=== PATIENT | female | born 1990 ===

== ENCOUNTER 2023-03-23 15:47 | Outpatient (CLI) | payer OTHER | END 2023-03-23 16:38 | disposition home or self-care (01) | LOC: PRENATAL 15:47 | PROVIDERS: ATTEND Obstetrics & Gynecology Maternal & Fetal Medicine | DX: O36.80X0 Pregnancy with inconclusive fetal viability, not applicable or unspecified (principal); Z36.82 Encounter for antenatal screening for nuchal translucency; O99.019 Anemia complicating pregnancy, unspecified trimester; Z3A.13 13 weeks gestation of pregnancy ==

== ENCOUNTER 2023-05-12 14:42 | Outpatient (CLI) | payer OTHER | END 2023-05-12 14:43 | disposition home or self-care (01) | LOC: PRENATAL 14:42 | PROVIDERS: ATTEND Obstetrics & Gynecology Maternal & Fetal Medicine | DX: O35.3XX0 Maternal care for (suspected) damage to fetus from viral disease in mother, not applicable or unspecified (principal); O44.00 Complete placenta previa NOS or without hemorrhage, unspecified trimester; Z3A.20 20 weeks gestation of pregnancy ==

== ENCOUNTER 2023-06-19 17:58 | Outpatient (CLI) | payer OTHER ==
[2023-06-19] MEDS ORDERED: PRENATAL TABLE1 EAC1 PO (18:33)
[2023-06-19] MEDS ORDERED: IRON236 MG PO (18:33)
[2023-06-19] MEDS ORDERED: MACROBID 100 M100 MG (18:34)
[2023-06-19 18:58] LABS: HEMATOCRIT 30.9 % (36.0-45.00); HEMOGLOBIN 10.2 g/dL (12.0-15.00); MEAN CELL VOLUME 70.6 fL (80.00-100.00); MEAN CORPUSCULAR HEMOGLOBIN 23.3 pg (27.00-32.0); PLATELET COUNT 254 K/uL (150-450); RED BLOOD COUNT 4.37 M/uL (4.00-6.00); RED CELL DISTRIBUTION WIDTH 17.3 % (11.5-14.5)
[2023-06-19 19:17] LABS: INR 0.98; PARTIAL THROMBOPLASTIN TIME 25.9 SECONDS (22.0-34.0); PROTHROMBIN TIME 10.3 SECONDS (9.0-11.5)
[2023-06-19 19:18] LABS: ALBUMIN 2.7 gm/dL (3.4-5.0); BILIRUBIN TOTAL 0.38 mg/dL (0.3-1.2); CALCIUM 8.7 mg/dL (8.5-10.1); CREATININE SERUM 0.49 mg/dL (0.55-1.02); GFR 148.29; GLOBULINA 4.1 G/DL (2.4-3.5); POTASSIUM 3.5 mEq/L (3.5-5.1); TOTAL PROTEIN 6.8 gm/dL (6.4-8.2)
[2023-06-19 21:52] LABS: URINE PROT QUANT 24HR 5.9 MG/DL
== END 2023-06-20 00:15 | disposition home or self-care (01) ==
LOC: OBS/DEL 17:58
PROVIDERS: ATTEND Obstetrics & Gynecology
DX: O16.2 Unspecified maternal hypertension, second trimester (principal); Z3A.25 25 weeks gestation of pregnancy

== ENCOUNTER → 2023-08-03 15:16 | Outpatient (CLI) | payer OTHER ==
[~2023-08-03 15:16] MED LIST: IRON236 MG PO; MACROBID 100 M100 MG; PRENATAL TABLE1 EAC1 PO
== END | disposition home or self-care (01) ==
LOC: PRENATAL 15:16
PROVIDERS: ATTEND Obstetrics & Gynecology Maternal & Fetal Medicine
DX: O26.849 Uterine size-date discrepancy, unspecified trimester (principal); O36.8199 Decreased fetal movements, unspecified trimester, other fetus; O13.9 Gestational [pregnancy-induced] hypertension without significant proteinuria, unspecified trimester; Z3A.32 32 weeks gestation of pregnancy

== ENCOUNTER 2023-08-13 11:24 | Inpatient (IN) | payer OTHER ==
[~2023-08-13] VITALS: Ht 154.9 cm; Wt 1.8 kg
[~2023-08-13 11:24] MED LIST changes: -MACROBID 100 M100 MG; +MACROBID 100 M100 MG PO
[2023-08-13] MEDS ORDERED: BETAMETHASONE ACETATE,SOD PHOS 30 MG/5 ML ML ONE (12:02)
[2023-08-13] MEDS ORDERED: CHILDREN'S ASPI81 MG PO (12:11)
[2023-08-13] MEDS ORDERED: LABETALOL HCL100 MG PO (12:12)
[2023-08-13] MEDS ORDERED: BETAMETHASONE ACETATE,SOD PHOS 30 MG/5 ML ML IM STA (12:16)
[2023-08-13] MEDS ORDERED: SOD FERRIC GLUC COMPLX/SUCROSE 62.5 MG/5 ML AMPUL IV SCH (12:25)
[2023-08-13] MEDS ORDERED: RINGERS SOLUTION,LACTATED 1,000 ML IV SCH (12:30)
[2023-08-13 12:40] LABS: INR < 0.93; PARTIAL THROMBOPLASTIN TIME 26.1 SECONDS (22.0-34.0); PROTHROMBIN TIME 9.8 SECONDS (9.0-11.5)
[2023-08-13 12:44] LABS: ALBUMIN 2.8 gm/dL (3.4-5.0); BILIRUBIN TOTAL 0.46 mg/dL (0.3-1.2); CALCIUM 8.8 mg/dL (8.5-10.1); CREATININE SERUM 0.59 mg/dL (0.55-1.02); GFR 118.88; POTASSIUM 4.38 mEq/L (3.5-5.1); TOTAL PROTEIN 6.8 gm/dL (6.4-8.2); URIC ACID 4.6 mg/dL (2.5-7.5)
[2023-08-13 13:02] LABS: HEMATOCRIT 32.1 % (36.0-45.00); HEMOGLOBIN 10.2 g/dL (12.0-15.00); MEAN CORPUSCULAR HEMOGLOBIN 22.3 pg (27.00-32.0); MEAN CORPUSCULAR HGB CONC 31.9 g/dl (32.0-36.0); PLATELET COUNT 272 K/uL (150-450); RED CELL DISTRIBUTION WIDTH 16.9 % (11.5-14.5)
[2023-08-13 13:03] LABS: MEAN CELL VOLUME 69.8 fL (80.00-100.00)
[2023-08-13] MEDS ORDERED: LABETALOL HCL 200 MG TABLET PO SCH (17:00)
[2023-08-14] MEDS ORDERED: LABETALOL HCL 200 MG TABLET PO SCH (08:00)
[2023-08-14] MEDS ORDERED: BETAMETHASONE ACETATE,SOD PHOS 30 MG/5 ML ML IM ONE (12:05)
[2023-08-14 12:11] LABS: HEMATOCRIT 29.5 % (36.0-45.00); HEMOGLOBIN 9.7 g/dL (12.0-15.00); MEAN CORPUSCULAR HEMOGLOBIN 22.8 pg (27.00-32.0); MEAN CORPUSCULAR HGB CONC 32.9 g/dl (32.0-36.0); PLATELET COUNT 259 K/uL (150-450); RED BLOOD COUNT 4.27 M/uL (4.00-6.00); RED CELL DISTRIBUTION WIDTH 16.7 % (11.5-14.5)
[2023-08-14] MEDS ORDERED: BETAMETHASONE ACETATE,SOD PHOS 30 MG/5 ML ML ONE (12:11)
[2023-08-14 12:12] LABS: MEAN CELL VOLUME 69.1 fL (80.00-100.00)
[2023-08-14 12:32] LABS: ALBUMIN 2.5 gm/dL (3.4-5.0); BILIRUBIN TOTAL 0.58 mg/dL (0.3-1.2); CALCIUM 8.7 mg/dL (8.5-10.1); CREATININE SERUM 0.54 mg/dL (0.55-1.02); GFR 131.68; GLOBULINA 3.7 G/DL (2.4-3.5); POTASSIUM 4.24 mEq/L (3.5-5.1); TOTAL PROTEIN 6.2 gm/dL (6.4-8.2)
[2023-08-14] MEDS ORDERED: NITROFURANTOIN MONOHYD/M-CRYST 100 MG CAPSULE PO SCH (17:00)
[2023-08-15] MEDS ORDERED: FAMOtidine 20 MG TABLET PO STA (19:36)
[2023-08-15] MEDS ORDERED: ACETAMINOPHEN 500 MG GEL..CAP PO STA (19:36)
[2023-08-16] MEDS ORDERED: LABETALOL HCL 100 MG/20 ML ML IV PUSH ONE (03:15)
[2023-08-16 05:31] LABS: HEMATOCRIT 29.7 % (36.0-45.00); HEMOGLOBIN 9.6 g/dL (12.0-15.00); MEAN CELL VOLUME 70.2 fL (80.00-100.00); MEAN CORPUSCULAR HEMOGLOBIN 22.7 pg (27.00-32.0); MEAN CORPUSCULAR HGB CONC 32.4 g/dl (32.0-36.0); PLATELET COUNT 280 K/uL (150-450); RED BLOOD COUNT 4.23 M/uL (4.00-6.00); RED CELL DISTRIBUTION WIDTH 17.3 % (11.5-14.5)
[2023-08-16 05:43] LABS: ALBUMIN 2.7 gm/dL (3.4-5.0); BILIRUBIN TOTAL 0.37 mg/dL (0.3-1.2); CALCIUM 8.9 mg/dL (8.5-10.1); CREATININE SERUM 0.67 mg/dL (0.55-1.02); GFR 102.66; GLOBULINA 3.7 G/DL (2.4-3.5); POTASSIUM 4.4 mEq/L (3.5-5.1); TOTAL PROTEIN 6.4 gm/dL (6.4-8.2)
[2023-08-16] MEDS ORDERED: CYCLOBENZAPRINE HCL 5 MG TABLET PO ONE (05:45)
[2023-08-16] MEDS ORDERED: MAGNESIUM SULFATE IN WATER 4 GM/100 ML PIGGYBACK IV ONE (07:34)
[2023-08-16] MEDS ORDERED: hydrALAZINE HCL 20 MG VIAL ONE (07:48)
[2023-08-16] MEDS ORDERED: MAGNESIUM SULFATE IN WATER 0.04 GM/ML IV.SOLN IV ONE ×2 (08:11→19:04)
[2023-08-16] MEDS ORDERED: MAGNESIUM SULFATE IN WATER 500 ML IV SCH (09:00)
[2023-08-16] MEDS ORDERED: hydrALAZINE HCL 20 MG VIAL IV ONE (09:00)
[2023-08-16] MEDS ORDERED: MAGNESIUM SULFATE IN WATER 100 ML IV ONE (09:00)
[2023-08-16] MEDS ORDERED: OxyCODONE HCL/APAP UD (PERCOCET) PO ONE (09:15)
[2023-08-16 12:34] LABS: HEMATOCRIT 28.9 % (36.0-45.00); HEMOGLOBIN 9.3 g/dL (12.0-15.00); MEAN CELL VOLUME 70.6 fL (80.00-100.00); MEAN CORPUSCULAR HEMOGLOBIN 22.8 pg (27.00-32.0); MEAN CORPUSCULAR HGB CONC 32.3 g/dl (32.0-36.0); PLATELET COUNT 271 K/uL (150-450); RED CELL DISTRIBUTION WIDTH 17.2 % (11.5-14.5)
[2023-08-16] MEDS ORDERED: ERYTHROMYCIN BASE 3.5 GM OINT...G. OP ONE (12:42)
[2023-08-16] MEDS ORDERED: OXYTOCIN 10 UNITS/ML VIAL ONE (12:42)
[2023-08-16 12:49] LABS: INR < 0.93; PARTIAL THROMBOPLASTIN TIME 25.1 SECONDS (22.0-34.0); PROTHROMBIN TIME 9.6 SECONDS (9.0-11.5)
[2023-08-16 13:40] LABS: ALBUMIN 2.6 gm/dL (3.4-5.0); BILIRUBIN TOTAL 0.48 mg/dL (0.3-1.2); CALCIUM 7.9 mg/dL (8.5-10.1); CREATININE SERUM 0.55 mg/dL (0.55-1.02); GFR 128.92; GLOBULINA 3.6 G/DL (2.4-3.5); POTASSIUM 4.06 mEq/L (3.5-5.1); TOTAL PROTEIN 6.2 gm/dL (6.4-8.2)
[2023-08-16] MEDS ORDERED: CEFAZOLIN SODIUM 1,000 MG VIAL IV SCH (14:30)
[2023-08-16] MEDS ORDERED: RINGERS SOLUTION,LACTATED 1,000 ML IV SCH (15:30)
[2023-08-16] MEDS ORDERED: ERYTHROMYCIN BASE 1 GM TUBE OP ONE (16:00)
[2023-08-16] MEDS ORDERED: OXYTOCIN 10 UNITS/ML VIAL IV ONE (16:00)
[2023-08-16] MEDS ORDERED: MEPERIDINE HCL/PF 50 MG/ML VIAL IM PRN (18:30)
[2023-08-16] MEDS ORDERED: PROMETHAZINE HCL 50 MG/ML AMPUL IM PRN (18:30)
[2023-08-16] MEDS ORDERED: LABETALOL HCL 20MG/4ML SYRINGE IV ONE (19:30)
[2023-08-17] MEDS ORDERED: OxyCODONE HCL/APAP UD (PERCOCET) PO PRN (08:00)
[2023-08-17] MEDS ORDERED: SIMETHICONE 125 MG CAPSULE PO SCH (09:00)
[2023-08-17] MEDS ORDERED: PNV,CALCIUM 72/IRON/FOLIC ACID 1 TAB TABLET PO SCH (09:00)
[2023-08-17] MEDS ORDERED: DOCUSATE SODIUM 100MG CAP PO SCH (09:00)
[2023-08-17 09:40] LABS: HEMATOCRIT 26.4 % (36.0-45.00); HEMOGLOBIN 8.6 g/dL (12.0-15.00); MEAN CELL VOLUME 69.4 fL (80.00-100.00); MEAN CORPUSCULAR HEMOGLOBIN 22.5 pg (27.00-32.0); MEAN CORPUSCULAR HGB CONC 32.5 g/dl (32.0-36.0); PLATELET COUNT 216 K/uL (150-450); RED BLOOD COUNT 3.81 M/uL (4.00-6.00); RED CELL DISTRIBUTION WIDTH 17.3 % (11.5-14.5)
[2023-08-17 10:07] LABS: ALBUMIN 2.2 gm/dL (3.4-5.0); BILIRUBIN TOTAL 0.69 mg/dL (0.3-1.2); CALCIUM 6.9 mg/dL (8.5-10.1); CREATININE SERUM 0.5 mg/dL (0.55-1.02); GFR 143.9; GLOBULINA 3.2 G/DL (2.4-3.5); POTASSIUM 3.79 mEq/L (3.5-5.1); TOTAL PROTEIN 5.4 gm/dL (6.4-8.2)
[2023-08-17] MEDS ORDERED: IBUprofen 800 MG TABLET PO SCH (21:00)
[2023-08-17] MEDS ORDERED: IBUprofen 400 MG TABLET PO ONE (21:02)
[2023-08-18 08:41] LABS: HEMATOCRIT 27.1 % (36.0-45.00); MEAN CELL VOLUME 71.7 fL (80.00-100.00); MEAN CORPUSCULAR HEMOGLOBIN 23.6 pg (27.00-32.0); MEAN CORPUSCULAR HGB CONC 32.9 g/dl (32.0-36.0); PLATELET COUNT 234 K/uL (150-450); RED BLOOD COUNT 3.77 M/uL (4.00-6.00); RED CELL DISTRIBUTION WIDTH 17.8 % (11.5-14.5)
[2023-08-18 08:44] LABS: HEMOGLOBIN 8.9 g/dL (12.0-15.00)
[2023-08-18 09:06] LABS: ALBUMIN 2.4 gm/dL (3.4-5.0); BILIRUBIN TOTAL 0.57 mg/dL (0.3-1.2); CALCIUM 8.1 mg/dL (8.5-10.1); CREATININE SERUM 0.63 mg/dL (0.55-1.02); GFR 110.22; GLOBULINA 3.5 G/DL (2.4-3.5); POTASSIUM 3.93 mEq/L (3.5-5.1); TOTAL PROTEIN 5.9 gm/dL (6.4-8.2)
[2023-08-19] MEDS ORDERED: FERROUS SULFATE 325 MG TABLET.EC PO SCH (09:00)
[2023-08-20 10:10] LABS: HEMATOCRIT 26.7 % (36.0-45.00); HEMOGLOBIN 8.7 g/dL (12.0-15.00); MEAN CELL VOLUME 72.9 fL (80.00-100.00); MEAN CORPUSCULAR HEMOGLOBIN 23.7 pg (27.00-32.0); MEAN CORPUSCULAR HGB CONC 32.4 g/dl (32.0-36.0); PLATELET COUNT 213 K/uL (150-450); RED BLOOD COUNT 3.67 M/uL (4.00-6.00); RED CELL DISTRIBUTION WIDTH 18.2 % (11.5-14.5)
[2023-08-20 10:49] LABS: ALBUMIN 2.4 gm/dL (3.4-5.0); BILIRUBIN TOTAL 0.54 mg/dL (0.3-1.2); CALCIUM 8.6 mg/dL (8.5-10.1); CREATININE SERUM 0.52 mg/dL (0.55-1.02); GFR 137.54; GLOBULINA 3.4 G/DL (2.4-3.5); POTASSIUM 4.3 mEq/L (3.5-5.1); TOTAL PROTEIN 5.8 gm/dL (6.4-8.2)
[2023-08-20] MEDS ORDERED: LABETALOL HCL 200 MG TABLET PO SCH (17:00)
== END 2023-08-20 17:36 | disposition home or self-care (01) | DRG 788 ==
LOC: LDR 11:24 → OB/GYN 11:24
PROVIDERS: ADMIT Obstetrics & Gynecology; ATTEND Obstetrics & Gynecology
PROC: 4A1HXCZ Monitoring of Products of Conception, Cardiac Rate, External Approach (ICD-10-PCS; 2023-08-13)
PROC: BY4FZZZ Ultrasonography of Third Trimester, Single Fetus (ICD-10-PCS; 2023-08-13)
PROC: 10D00Z1 Extraction of Products of Conception, Low, Open Approach (ICD-10-PCS; principal; 2023-08-16 12:00)
DX: O14.14 Severe pre-eclampsia complicating childbirth (principal); O33.8 Maternal care for disproportion of other origin; O99.02 Anemia complicating childbirth; O36.8130 Decreased fetal movements, third trimester, not applicable or unspecified; D64.9 Anemia, unspecified; O13.4 Gestational [pregnancy-induced] hypertension without significant proteinuria, complicating childbirth; O26.843 Uterine size-date discrepancy, third trimester; Z3A.33 33 weeks gestation of pregnancy; Z37.0 Single live birth; Z20.822 Contact with and (suspected) exposure to COVID-19